=== PATIENT | male | born 2000 | race Hispanic/Latino ===

== ENCOUNTER 2022-04-10 11:42 | Emergency (ER) | payer BC ==
[~2022-04-10] VITALS: Ht 165.1 cm; Wt 63.5 kg
[2022-04-10] MEDS ORDERED: MUPIROCIN22 GM TOP (13:05)
[2022-04-10] MEDS ORDERED: BACTRIM DS TAB1 EACH PO (13:05)
== END 2022-04-10 13:17 | disposition home or self-care (01) ==
LOC: ER 12:56
DX: S61.011A Laceration without foreign body of right thumb without damage to nail, initial encounter (principal); W26.0XXA Contact with knife, initial encounter; Y92.000 Kitchen of unspecified non-institutional (private) residence as the place of occurrence of the external cause
CPT/HCPCS: 99283